=== PATIENT | female | born 1990 | race Caucasian/White ===

== ENCOUNTER 2017-04-15 21:28 | Emergency (ER) | payer SELFPAY ==
--- NOTE | 2017-04-15 21:52 | EDM.PDOC ---
[id number] Complaint: PT HURT LT ANKLE Time Seen by Provider: 04/15/17 21:45 Source of Information: Reports: Patient History Limitations: Reports: No Limitations - History of Present Illness INITIAL COMMENTS - FREE TEXT/NARRATIVE: HISTORY AND PHYSICAL: History of present illness: [26-year-old female complaining of area of bruising and soreness dorsum of left foot. Patient states pain radiates up or calf she is concerned she medical blood clot. No history of hypercoagulability. Patient has never had a DVT before. She states she mentions soreness to a friend and they told her she could have of blood clots and she came to the emergency department for evaluation. No chest pain or shortness of breath. Otherwise asymptomatic. No pain with weightbearing. There is a small area that is faintly bruised appearing on the dorsum of her foot] Review of systems: As per history of present illness and below otherwise all systems reviewed and negative. Past medical history: As per history of present illness and as reviewed below otherwise noncontributory. Surgical history: As per history of present illness and as reviewed below otherwise noncontributory. Social history: No reported history of drug or alcohol abuse. Family history: As per history of present illness and as reviewed below otherwise noncontributory. Physical exam: HEENT: Atraumatic, normocephalic, pupils reactive, negative for conjunctival pallor or scleral icterus, mucous membranes moist, throat clear, neck supple, nontender, trachea midline. Lungs: Clear to auscultation, breath sounds equal bilaterally, chest nontender. Heart: S1S2, regular, negative for clicks, rubs, or JVD. Abdomen: Soft, nondistended, nontender. Negative for masses or hepatosplenomegaly. Negative for costovertebral tenderness. Pelvis: Stable nontender. Genitourinary: Deferred. Rectal: Deferred. Extremities: Atraumatic, negative for cords or calf pain. Neurovascular unremarkable. Neuro: Awake, alert, oriented. Cranial nerves II through XII unremarkable. Cerebellum unremarkable. Motor and sensory unremarkable throughout. Exam nonfocal. Diagnostics: [] Therapeutics: [] Impression: [] Plan: [Signs and symptoms consistent with mild ecchymosis dorsum of left foot. Minimal tenderness no bony tenderness. Lower extremity exam is otherwise unremarkable with no cords or tenderness in the calf or thigh. Normal pulses and cap refill neurovascularly intact. Doppler done to rule out DVT was negative. No respiratory symptoms. No further workup or treatment indicated. Patient agrees with outpatient follow-up. Strict return precautions given] Definitive disposition and diagnosis as appropriate pending reevaluation and review of above. left ankle Pain Score (Numeric/FACES): 7 - Related Data Allergies Allergy/AdvReac Type Severity Reaction Status Date / Time latex Allergy Itching Verified 04/15/17 21:41 Home Meds: Home Meds Turmeric Root Extract [Turmeric] 500 mg PO DAILY 04/15/17 [History] Review of Systems - Review of Systems Review Of Systems: See Below (History of present illness) ED EXAM, GENERAL - Physical Exam Exam: See Below (History of present illness) Course - Vital Signs Last Recorded V/S: Last Vital Signs Temp 36.4 C 04/15/17 23:12 Pulse 72 04/15/17 23:12 Resp 16 04/15/17 23:12 BP 122/67 04/15/17 23:12 Pulse Ox 99 04/15/17 23:12 Departure - Departure Time of Disposition: 21:40 Disposition: Home, Self-Care 01 Clinical Impression: Lower extremity pain, Traumatic ecchymosis of left foot - Discharge Information Instructions: Ankle Pain Referrals: PCP,None [Primary Care Provider] - Forms: ED Department Discharge Additional Instructions: You have some very mild bruising of your left foot. It's unclear why your left leg was slightly sore however there is no signs of emergency today. Your ultrasound was negative for blood clot. Take ibuprofen if you have any soreness and follow-up with your DrAnastasiia in one to 2 days. Return immediately for new severe worsening symptoms
[2017-04-15 23:16] VITALS: BP 122/67
--- NOTE | 2017-04-16 12:52 | US ---
EXAM DATE: 04/15/17 PATIENT'S AGE: 26 Patient: JESÚS WELSH Facility: [place], [place] Site . Site : 1992 Study: US Extremity Right [id number]/12/2017 10:20:57 PM Ordering Physician: José Miguel Griffiths Final Report: INDICATION: Pain TECHNIQUE: Ultrasound venous duplex lower left extremity. Compression venous exam was performed using macias-scale, color Doppler, and spectral Doppler analysis. COMPARISON: None available FINDINGS: Sonographic imaging demonstrates the left common femoral, deep femoral, superficial femoral, popliteal, posterior tibial and greater saphenous veins to be fully compressible with normal color Doppler blood flow. IMPRESSION: No evidence of a deep venous thrombosis in the left lower extremity. Dictated by Paresh Yousif MD @ 04/15/2017 10:51:23 PM Dictated by: Paresh Yousif MD @ 04/15/2017 22:51:32 (Electronic Signature) Report Signed by Proxy. HARLEY
== END 2017-04-15 23:12 | disposition home or self-care (01) ==
LOC: MW.ED 21:28
DX: S90.32XA Contusion of left foot, initial encounter (principal); Z91.040 Latex allergy status; X58.XXXA Exposure to other specified factors, initial encounter
CPT/HCPCS: 93971-26-LT; 93971-LT; 99282; 99283-25

== ENCOUNTER 2017-04-30 21:13 | Emergency (ER) | payer SELFPAY ==
--- NOTE | 2017-04-30 21:49 | EDM.PDOC ---
ED HPI GENERAL MEDICAL PROBLEM - General Chief Complaint: General Stated Complaint: ABCESS IN GROIN AREA Time Seen by Provider: 04/30/17 21:46 - History of Present Illness INITIAL COMMENTS - FREE TEXT/NARRATIVE: HISTORY AND PHYSICAL: History of present illness: Patient's 26-year-old female presents with a concern cutaneous lesion or right medial thigh she's had this in the past and was treated with antibiotics to resolve completely but no fever chills nausea vomiting or other complaints Review of systems: As per history of present illness and below otherwise all systems reviewed and negative. Past medical history: As per history of present illness and as reviewed below otherwise noncontributory. Surgical history: As per history of present illness and as reviewed below otherwise noncontributory. Social history: No reported history of drug or alcohol abuse. Family history: As per history of present illness and as reviewed below otherwise noncontributory. Physical exam: HEENT: Atraumatic, normocephalic, pupils reactive, negative for conjunctival pallor or scleral icterus, mucous membranes moist, throat clear, neck supple, nontender, trachea midline. Lungs: Clear to auscultation, breath sounds equal bilaterally, chest nontender. Heart: S1S2, regular, negative for clicks, rubs, or JVD. Abdomen: Soft, nondistended, nontender. Negative for masses or hepatosplenomegaly. Negative for costovertebral tenderness. Pelvis: Stable nontender. Genitourinary: Deferred. Rectal: Deferred. Extremities: Patient has a small superficial cutaneous lesion right medial thigh is minimal induration and no fluctuance slight discoloration no drainage. Neuro: Awake, alert, oriented. Cranial nerves II through XII unremarkable. Cerebellum unremarkable. Motor and sensory unremarkable throughout. Exam nonfocal. Diagnostics: None Therapeutics: None Impression: #1 cutaneous lesion right thigh etiology to be determined rule out early cellulitis Definitive disposition and diagnosis as appropriate pending reevaluation and review of above. 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: Musculoskeletal History: Reports: None Neurological History: Reports: None Psychiatric History: Reports: Anxiety, Depression Endocrine/Metabolic History: Reports: None Hematologic History: Reports: None Immunologic History: Reports: None Oncologic (Cancer) History: Reports: None Dermatologic History: Reports: None - Infectious Disease History Infectious Disease History: Reports: None - Past Surgical History HEENT Surgical History: Reports: Oral Surgery GI Surgical History: Reports: Cholecystectomy Female Surgical History: Reports: Tubal Ligation Social & Family History - Family History Family Medical History: Noncontributory - Tobacco Use Smoking Status *Q: Current Every Day Smoker Years of Tobacco use: 8 Packs/Tins Daily: 1 - Caffeine Use Caffeine Use: Reports: Coffee - Recreational Drug Use Recreational Drug Use: No ED ROS GENERAL - Review of Systems Review Of Systems: ROS reveals no pertinent complaints other than HPI. (See dictation) ED EXAM, GENERAL - Physical Exam Exam: See Below (See dictation) Course - Vital Signs Last Recorded V/S: Last Vital Signs Temp 36.6 C 04/30/17 21:38 Pulse 82 04/30/17 21:38 Resp 16 04/30/17 21:38 BP 123/79 04/30/17 21:38 Pulse Ox 99 04/30/17 21:38 Departure - Departure Time of Disposition: 21:49 Disposition: Home, Self-Care 01 Condition: Good Clinical Impression: Cellulitis - Discharge Information Forms: ED Department Discharge Additional Instructions: The following information is given to patients seen in the emergency department who are being discharged to home. This information is to outline your options for follow-up care. We provide all patients seen in our emergency department with a follow-up referral. The need for follow-up, as well as the timing and circumstances, are variable depending upon the specifics of your emergency department visit. If you don't have a primary care physician on staff, we will provide you with a referral. We always advise you to contact your personal physician following an emergency department visit to inform them of the circumstance of the visit and for follow-up with them and/or the need for any referrals to a consulting specialist. The emergency department will also refer you to a specialist when appropriate. This referral assures that you have the opportunity for followup care with a specialist. All of these measure are taken in an effort to provide you with optimal care, which includes your followup. Under all circumstances we always encourage you to contact your private physician who remains a resource for coordinating your care. When calling for followup care, please make the office aware that this follow-up is from your recent emergency room visit. If for any reason you are refused follow-up, please contact the [facility] emergency department at and asked to speak to the emergency department charge nurse. [facility] Specialty Care - General Surgery Professional Building [address] [place] [address], [address] [place] [address] Bactrim as prescribed follow-up primary medical doctor/general surgery call to schedule appointment return as needed as discussed
[2017-04-30 21:58] VITALS: BP 122/80
== END 2017-04-30 22:11 | disposition home or self-care (01) ==
LOC: MW.ED 21:13
DX: L03.115 Cellulitis of right lower limb (principal); F32.9 Major depressive disorder, single episode, unspecified; F17.210 Nicotine dependence, cigarettes, uncomplicated; Z79.899 Other long term (current) drug therapy; Z91.040 Latex allergy status; Z90.49 Acquired absence of other specified parts of digestive tract; Z98.51 Tubal ligation status
CPT/HCPCS: 99282; 99283